=== PATIENT | male | born 1960 | race Caucasian/White ===

== ENCOUNTER 2024-10-20 11:10 | Outpatient (CLI) | payer OTHER, MEDICARE, SELFPAY ==
--- OUTSIDE RECORDS SUMMARY | 2024-09-13 14:16 | XMS_ITS ---
Author Organization [facility] Address [address] [place] [address] Phone Care Team Providers Care Seaming Machine Operator Name Role Phone Latoya Barboza CNP Unavailable [phone] Conditions or Problems Problem Name Problem Code Onset Date Status Entry Date Provider Comment Standard Description Annotate STENOSIS, CERVICAL SPINAL 05356861 (SNOMED CT) Active Latoya Barboza CNP Spinal stenosis in cervical region Medications No information available. Medications Administered No information available. Allergies, Adverse Reactions, Alerts No information available. Results No information available. Plan of Care No information available. Procedures No information available. Vital Signs No information available. Immunizations No information available. Advance Directives No information available.
--- OUTSIDE RECORDS SUMMARY | 2024-10-20 11:17 | XMS_ITS | Clinical Summary ---
Author Organization [facility] Address [address] [place] [address] Phone Care Team Providers Care Machine Maintenance Repairer Name Role Phone Sherwin Pace MDald Babs [phone] Conditions or Problems Problem Name Problem Code Onset Date Status Entry Date Provider Comment Standard Description Annotate STENOSIS, CERVICAL SPINAL 12355890 (SNOMED CT) Active 09/13 Latoya Barboza CNP Spinal stenosis in cervical region CERVICAL RADICULOPATHY 38253679 (SNOMED CT) Active 09/13 [place] Cervical radiculopathy Medications Medication Instructions Start Date Stop Date Generic Name [facility] Provider TRELEMORGAN ELLIPTA 200-62.5-25 MCG/ACT AEPB fluticasone-umec lidin-vilanter [id number] [place] ALBUTEROL SULFATE HFA 108 (90 Base) MCG/ACT AERS albuterol sulfate [id number] [place] LEVETIRACETAM 500 MG TABS levetiracetam [id number] [place] BUPROPION HCL ER (SR) 150 MG [id number] bupropion hcl [id number] [place] TYLENOL EXTRA STRENGTH 500 MG TABS acetaminophen [id number] [facility] [place] Medications Administered No information available. Allergies, Adverse Reactions, Alerts Observed No Known Drug Allergies at Results No information available. Plan of Care Type Date Detail Pending order JENNYFER x 1 therapeu tic injection & follow up with ordering MD Pending order X-Ray Cervical A P/ Lateral / Flexion & Extension Procedures No information available. Vital Signs Date Name Value Unit Description BMI (Body Mass Index) 21.61 kg/m2 Bod y Mass Index (Ratio) Height 63 [in_us] height E&M Weight Measured 122 [lb_av] weight E& M Weight Measured 122 [lb_av] weight E& M Immunizations No information available. Advance Directives No information available.
--- OUTSIDE RECORDS SUMMARY | 2024-10-20 11:18 | XMS_ITS | Clinical Summary ---
Author Organization [facility] Address [address] [place] [address] Phone Care Team Providers Care Paper Plate Machine Tender Name Role Phone Unavailable Primary Care Provider Unavailabl e Allergies No known active allergies Medications No known medications Medical History Medical History Date Comments COPD (chronic obstructive pulmonary disease) (HC C) Social History Tobacco Use Types Packs/Day Years Used Date Smoking Tobacco: Every Day Cigarettes 2 36.7 Started: 1988 Smokeless Tobacco: Never Tobacco Cessation:Ready to Q uit: Not Asked; Counseling Given: Not Answered Alcohol Use Standard Drinks/Week Comments Not Currently 0 (1 standard drink = 0.6 oz pur e alcohol) Sexually Active Control Partners Comments Not Currently Sex and Gender Information Value Date Recorded Sex Assigned at Not on file Legal Sex Male 9:24 PM EDT Gender Identity Not on file Sexual Orientation Not on file Obstetrics History Last Filed Vital Signs Vital Sign Reading Time Taken Comments Blood Pressure 118/76 05/23/2024 3:00 PM EDT Pulse 91 05/23/2024 3:00 PM EDT Temperature 36.4 C (97.6 F) 05/23/2024 10:17 AM EDT Respiratory Rate 15 05/23/2024 3:00 PM EDT Oxygen Saturation 94% 05/23/2024 2:59 PM EDT Inhaled Oxygen Concentration - - Weight 61.2 kg (135 lb) 05/23/2024 10:17 AM EDT Height 167.6 cm (5' 6 ) 05/23/2024 10:17 AM EDT Body Mass Index 21.79 05/23/2024 10:17 AM EDT Plan of Treatment Health Maintenance Due Date Last Done Comments Annual Wellness Exam 1964 Hepatitis C Screening 1979 DTaP/TDaP/Td (1 - Tdap) 1980 Pneumococcal Vaccine 50+ (1 of 2 - PCV) 1980 Cologuard 2006 Colon Cancer Screening 2006 Colonoscopy 2006 FIT 2006 Sigmoidoscopy 2006 Virtual Colonography 2006 Low Dose Lung Cancer Screening 2011 Zoster (1 of 2) 2011 COVID-19 Vaccine (1 - 2023-2 5 season) 2023 Influenza Vaccine (#1) 2024 Hepatitis B Vaccine Aged Out No longe r eligible based on patient's age to complete this topic Meningococcal B Vaccine Aged Out No l onger eligible based on patient's age to complete this topic [facility] [place] [employer] [place] [address] [facility] DUAL COMPLETE HMO [place]DSNP
[2024-10-20 11:26] LABS: Hematocrit 46.0 % (42.0-52.0); Hemoglobin 15.5 g/dL (14.1-18.0); Immature Granulocytes % 0.4 %; Mean Corpuscular HGB Conc 33.7 g/dL (31.8-35.4); Mean Corpuscular Hemoglobin 31.7 pg (27.0-31.2); Mean Corpuscular Volume 94.1 fl (80-94); Nucleated Red Blood Cells % 0 %; Platelet Count 201 K/mm3 (142-424); Red Blood Count 4.89 M/mm3 (4.60-6.20); Red Cell Distribution Width-SD 45.0 fL; White Blood Count 8.3 K/mm3 (4.8-10.8)
[2024-10-20 14:29] LABS: Chloride 105 mmol/L (98-107)
[2024-10-20 14:30] LABS: Albumin Level 4.5 g/dl (3.5-5.0); Potassium 4.2 mmoL/L (3.5-5.1); Sodium 140 mmol/L (136-145)
[2024-10-20 14:32] LABS: Alanine Aminotransferase 22 U/L (12-78); Aspartate Amino Transferase 27 U/L (17-59); Blood Urea Nitrogen 14 mg/dl (9-20); Creatinine,Serum 0.90 mg/dl (0.66-1.25); Estimated Glomerular Filt Rate 85 ml/min (>60); GFR (African American) 103 ML/MIN (>60)
[2024-10-20 14:33] LABS: Albumin/Globulin Ratio 1.8 (1.1-1.8); Alkaline Phosphatase 82 U/L (38-126); Anion Gap 12.2 mEq/L (5-15); Bilirubin,Total 0.5 mg/dl (0.2-1.3); Calcium 9.6 mg/dl (8.4-10.2); Carbon Dioxide 27 mmol/L (22.0-30.0); Globulin 2.5 g/dL (1.3-3.2); Glucose 107 mg/dl (74-100); Total Protein,Serum 7.0 g/dl (6.3-8.2)
[2024-10-20 15:02] LABS: Valproic Acid, (Depakene) < 10.0 ug/ml (50-100)
[2024-10-20 15:05] LABS: RPR W/RFX Titers Nonreactive (Nonreactive)
[2024-10-22 12:17] LABS: Antinuclear Antibodies (ANA) Negative (Negative)
== END 2024-10-20 23:59 | disposition home or self-care (01) ==
PROVIDERS: Visit Provider Specialist
DX: E78.5 Hyperlipidemia, unspecified (principal); R56.9 Unspecified convulsions; R51.9 Headache, unspecified
CPT/HCPCS: 36415; 80053; 80164; 85025; 85651; 86592